=== PATIENT | female | born 1995 | race Caucasian/White ===

== ENCOUNTER 2016-08-08 12:04 | Emergency (ER) | payer BC ==
[~2016-08-08] VITALS: Ht 157.5 cm; Wt 70.0 kg
[~2016-08-08 12:04] MED LIST: AMOXICILLIN500 MG PO; AMOXICILLIN875 MG OR; ANTIVERT PO; AUGMENTIN875 MG OR; BACTRIM DS1 TAB PO; CONCEPT OB PO; ERY-TAB250 MG OR; FIORICET PO; FLUCONAZOLE150 MG PO; GARDASIL IM; HAVRIX720 UNI1 IM; KETOCONAZOLE2 % EX; MACRODANTIN100 MG PO; NO HOME MEDS; NO MEDS; OMNICEF300 MG OR; ONDANSETRON ODT8 MG PO; ONDANSETRON4 MG PO; ORTHO EVRA TD; PRE-NATAL PO; SPRINTEC 2828 DAY PO; TERBINAFINE250 M1 PO; TYLENOL & COD12.5 ML OR; ZITHROMAX500 MG OR; ZOFRAN ODT4 MG PO; ZOLOFT25 MG OR
[2016-08-08] MEDS ORDERED: ONDANSETRON4 MG PO (12:14)
[2016-08-08 12:59] LABS: ALBUMIN 4.2 g/dL (3.2-5.0); ALKALINE PHOSPHATASE 65 u/l (38-126); ANION GAP 16 (6-22 (CALC)); BILIRUBIN, TOTAL 0.4 mg/dL (0.0-1.4); BUN 5 mg/dL (7-17); BUN/CREATININE RATIO 10 (12-20 (CALC)); CALCIUM 9.7 mg/dL (8.4-10.2); CARBON DIOXIDE 21 mmol/l (22-30); CHLORIDE 105 mmol/l (95-108); CREATININE 0.5 mg/dL (0.5-1.0); GFR > 60 ML/MIN (>=60 (CALC)); GFR FOR AFR.AMER. > 60 ML/MIN (>=60 (CALC)); GLUCOSE 79 mg/dL (65-105); LIPASE 29 u/l (23-300); POTASSIUM 3.4 mmol/l (3.5-5.1); SGOT/AST 26 u/l (14-36); SGPT/ALT 31 u/l (9-52); SODIUM 138 mmol/l (137-146); TOTAL PROTEIN 7.2 g/dL (6.3-8.2)
[2016-08-08 13:04] LABS: HEMATOCRIT 35.2 % (37.0-47.0); HEMOGLOBIN 12.4 g/dl (12.0-16.0); IMMATURE GRANULOCYTES 1.1 % (0.0-1.0); MEAN CELL VOLUME 88.7 fL CALC (80.0-100.0); MEAN CORPUSCULAR HGB 31.2 pG CALC (26.0-32.0); MEAN CORPUSCULAR HGB CONC 35.2 g/L CALC (32.0-36.0); NEUT# 8.54 thou/uL (2.00-7.15); RED BLOOD COUNT 3.97 mill/uL (4.20-5.60); RED CELL DISTRI WIDTH 13.3 % (11.5-15.5)
[2016-08-08 13:11] LABS: MYOGLOBIN 12 ng/mL (0 - 62)
[2016-08-08 14:04] LABS: URINE BILIRUBIN - DIPSTICK NEGATIVE (NEGATIVE); URINE BLOOD DIPSTICK NEGATIVE (NEGATIVE); URINE CLARITY SLIGHT CLOUDY; URINE COLOR YELLOW; URINE GLUCOSE - DIPSTICK NEGATIVE (NEGATIVE); URINE KETONE NEGATIVE (NEGATIVE); URINE LEUK ESTERASE NEGATIVE (Negative); URINE NITRITE - DIPSTICK NEGATIVE (Negative); URINE PROTEIN - DIPSTICK NEGATIVE (NEG-TRACE); URINE UROBILINOGEN - DIPSTICK 0.2 E.U./dL (0.2)
[2016-08-08 19:40] VITALS: BP 117/72
== END 2016-08-08 19:33 | disposition short-term general hospital (02) | DRG 781 ==
LOC: ED 12:04
PROVIDERS: Emergency Medicine
DX: O26.892 Other specified pregnancy related conditions, second trimester (principal); N13.30 Unspecified hydronephrosis; R07.9 Chest pain, unspecified; M54.9 Dorsalgia, unspecified; R06.02 Shortness of breath; Z3A.21 21 weeks gestation of pregnancy
CPT/HCPCS: A9540; A9567